=== PATIENT | female | born 1995 | race Caucasian/White ===

== ENCOUNTER 2020-01-14 01:24 | Emergency (ER) | payer OTHER ==
[~2020-01-14] VITALS: Ht 165.1 cm; Wt 49.9 kg
[2020-01-14] MEDS ORDERED: MACROBID 100 M100 MG PO (03:17)
== END 2020-01-14 03:25 | disposition home or self-care (01) ==
LOC: ED 01:24
DX: N39.0 Urinary tract infection, site not specified (principal); J45.909 Unspecified asthma, uncomplicated; F17.200 Nicotine dependence, unspecified, uncomplicated; Z91.018 Allergy to other foods
CPT/HCPCS: 74177; 80053; 81001; 83690; 84703; 85025; 87077; 87088; 87186; 99284-25; J1885; J7030; Q9967

== ENCOUNTER 2020-01-16 22:27 | Observation (INO) | payer OTHER ==
[~2020-01-16] VITALS: Ht 165.1 cm; Wt 62.4 kg
[~2020-01-16 22:27] MED LIST: MACROBID 100 M100 MG PO
--- OUTSIDE RECORDS SUMMARY | 2020-01-16 22:30 | XMS ---
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 Gaston has no Care Guidelines for this patient. [facility] (12 MO.) [facility] T[facility] NOTE: Visits indicate total known visits. ED/C VISIT TRACKING (12 MO.) 01/16/2020 22:27 [facility] [place] TYPE: Emergency COMPLAINT: - ABD PAIN 01/14/2020 01:25 [facility] [place] TYPE: Emergency COMPLAINT: - ABD PAIN INPATIENT VISIT TRACKING (12 MO.) No inpatient visits to display in this time frame [email or web address]
--- NOTE | 2020-01-17 01:05 | NUR ---
PT ARRIVED TO THE FLOOR VIA STRETCHER. SHE WAS PULLED OVER TO BED 3PA. SHE IS TUCKED INTO BED VS TAKEN. ARTURO IS IN THE ROOM DOING THE ADMISSION HX.
--- NOTE | 2020-01-17 01:25 | NUR ---
PT HAVING EMESIS AND RATING PAIN 8/10. CALLED DR FALK GOT NEW ORDERS TORBC FOR DILAUDID/PHENERGAN. NO FURTHER CHANGES.
--- NOTE | 2020-01-17 02:05 | NUR ---
ADMINISTERED PT 1MG IV DILAUDID FOR 8/10 PAIN. PT DENIES FURTHER NEEDS. CALL LIGHT IS CLOSE.
--- NOTE | 2020-01-17 02:26 | NUR ---
PT IS RESTING WITH EYES CLOSED, RR IS EVEN AND NONLABORED ON RA AT 98% SPO2. IV IS INFUSING FINE. CALL LIGHT IS CLOSE.
--- NOTE | 2020-01-17 05:09 | NUR ---
PT IS RESTING WITH EYES CLOSED, RR IS EVEN AND NONLABORED. IV IS INFUSING FINE. CALL LIGHT IS CLOSE.
--- NOTE | 2020-01-17 05:16 | NUR ---
pt USED CALL LIGHT TO ASK FOR ASSISTANCE INTO RESTROOM. VS AND I&OS COMPLETE. NOTHING FURTHER NEEDED AT THIS TIME.
--- NOTE | 2020-01-17 05:18 | NUR ---
PT WAS ADMITTED 010 TODAY WITH HOLDING ORDERS FROM E.R. PT WAS IN ALOT OF PAIN, CALLED DR FALK FOR MORE PAIN CONTROL AND NAUSEA MEDS. PT SINCE HAD A DOSE OF DILADID AND HAS SLEPT WELL SINCE THEN. SHE WILL BE EVALUATED BY DR FALK TODAY FOR SURGERY. SHE IS NPO AND HAS LR RUNNING AT 125MLS/HR.
--- NOTE | 2020-01-17 05:33 | NUR ---
IN ROOM TO ADMINISTER DILAUDID FOR PAIN 02/25. REVIEWED PREOP CHECKLIST WITH PT. WILL TRY TO START A 2ND IV, PT STATES THEY USUALLY HAVE A HARD TIME STARTING IV'S ON HER.
--- NOTE | 2020-01-17 06:04 | NUR ---
PT HAS IV FIELD START. THIS RN MADE 2 UNSUCESSFUL IV ATTEMPTS. PT DENIES NEEDS AT THIS TIME. CALL LIGHT IS CLOSE.
--- NOTE | 2020-01-17 07:26 | NUR ---
IN ROOM FOR REPORT, PT IN 02/25 PAIN. ADMINISTERING 1.5MG IV DILAUDID. PT DENIES FURTHER NEEDS. CALL LIGHT IS CLOSE.
--- NOTE | 2020-01-17 07:41 | NUR ---
RECEIVED REPORT FROM PAXTON LOERA. PT HAD NOTIFIED RYAN ORDAZ THAT SHE WAS IN PAIN. MADELINE RN AND NOREEN LOERA IN ROOM TO GIVE PT 1.5MG OF DILAUDID. TA ORDAZ IN ROOM TO ASSIST PT TO HAVE WIPE DOWN. ROD IN ROOM TO ASSIST PT TO SIGN UP FOR INSURANCE
--- NOTE | 2020-01-17 08:35 | NUR ---
PT OFF TO SURGERY AT THIS TIME
--- NOTE | 2020-01-17 10:46 | CONS ---
[facility] [address], [place] [address] Signed DATE OF CONSULTATION: 01/17/2020 REFERRING PHYSICIAN: Dr. Harvey Schneider. CHIEF COMPLAINT: Right lower quadrant abdominal pain. HISTORY OF PRESENT ILLNESS: Liberty is a 24-year-old female, otherwise healthy, who tells me she outgrew her childhood asthma. She came to our emergency room a couple of days ago with abdominal pain. This workup was negative including a CT scan. There was concern for urinary tract infection. Macrobid was sent into local [facility]. She and her boyfriend never picked up the prescription. She is currently unemployed I believe and she told me her boyfriend is also unemployed. She told me she is originally from [place], [place] but had lived in [place], [place] for a while with her grandfather, Sreedhar Gould. She told me she does drive. She also has two older siblings. Her abdominal pain has gotten worse and it is now localized to the right lower quadrant. She came back to the emergency room for evaluation. White count was elevated and her urine specific gravity was elevated with bacteria and nitrates in the urine. Beta-hCG was negative. Urine culture still pending. A repeat CT scan showed an inflamed appendix. Consequently, she was admitted overnight and started on Rocephin and Flagyl on IV fluids. This morning, she was sleeping, but easily awaken. PAST MEDICAL HISTORY: Ovarian cyst and asthma as a child. PAST SURGICAL HISTORY: None. SOCIAL HISTORY: She smokes a pack of cigarettes a day. She does not drink. Apparently lives with her boyfriend. She drives, but is unemployed and her boyfriend is unemployed. Her grandfather is Sreedhar Gould at [phone] in [place], [place]. She told me she is estranged from her family including her mom and dad. She prefers the [facility] pharmacy and has two older siblings, one brother, one sister. FAMILY HISTORY: She told me no knowledge of any significant medical history in the family. REVIEW OF SYSTEMS: She had 10 systems reviewed and there has been no other issues including the fractures and/or metal in her body. Electronically Signed By: JELLY FALK MD 01/17/20 1046 PATIENT NAME: LIBERTY RAMIREZ CONSULTATION DATE OF : [birth year] REPORT #: [id number] PHYSICIAN: JELLY FALK MD PCP: OTHER PCP REPORT IS CONFIDENTIAL AND NOT TO BE RELEASED WITHOUT AUTHORIZATION [facility] [address] [place] [address] Signed ALLERGIES: Almonds. MEDICATIONS: Macrobid 100 mg p.o. b.i.d. was ordered, but she is yet to pick that up from [facility] pharmacy. PHYSICAL EXAMINATION: VITAL SIGNS: Her blood pressure is 121/71, heart rate 57, respiratory rate 18, temperature is 98.7. She is 100% on room air. She is 5 feet 5 inches and 62 kg. GENERAL: Liberty is a 24-year-old female, who was sleeping in the left lateral decubitus position. She was easily awakened. LUNGS: Clear to auscultation bilaterally. HEART: Regular rate and rhythm. ABDOMEN: Generally soft and flat, but she is tender in the right lower quadrant. LABORATORY DATA: Her white blood count 16.3, hemoglobin 13, neutrophils 83, BUN 8, creatinine 0.46. Urine specific gravity was elevated at 1.040 with lots of bacteria and nitrites. Urine culture is pending and we will check the urine culture from the ER two days ago. Liver function tests are negative. Beta-hCG is negative. Albumin is 4.1. Coronavirus is pending. RADIOGRAPHIC STUDIES: A CT scan of abdomen and pelvis is reviewed and she has an inflamed appendix in the right lower quadrant, although not particularly dilated at 5-6 mm. ASSESSMENT AND PLAN: Liberty is a 24-year-old female, who has been admitted with what appears to be appendicitis as well as a urinary tract infection and dehydration. She has been given IV fluids, antibiotics, and pain control overnight. We have a short surgery ahead over and she will be next in line to get her appendix removed. We discussed the location and function of the appendix. We discussed laparoscopic versus open appendectomy. We reviewed the expected intraop and postop course. We did review the risks including, but not limited to bleeding, infection, scarring, change in contour of the skin, damage to bowel, appendiceal stump leak, intraabdominal postoperative abscess, incisional hernias and other unforeseen comorbidities. She has expressed understanding, would like to proceed. Jelly Falk MD Electronically Signed By: JELLY FALK MD 01/17/20 1046 PATIENT NAME: LIBERTY RAMIREZ CONSULTATION DATE OF : [birth year] REPORT #: [id number] PHYSICIAN: JELLY FALK MD PCP: OTHER PCP REPORT IS CONFIDENTIAL AND NOT TO BE RELEASED WITHOUT AUTHORIZATION [facility] [address] [facility] [place], [place] [address] Signed ALB/MODL /[id number] cc: Jelly Falk MD Copies: JELLY FALK MD ~ Electronically Signed By: JELLY FALK MD 01/17/20 1046 PATIENT NAME: LIBERTY RAMIREZ CONSULTATION DATE OF : [birth year] REPORT #: [id number] PHYSICIAN: JELLY FALK MD PCP: OTHER PCP REPORT IS CONFIDENTIAL AND NOT TO BE RELEASED WITHOUT AUTHORIZATION
--- NOTE | 2020-01-17 10:58 | NUR ---
01/17/20 1058 Edwige Richards 1038 PT ARRIVED IN PACU SLEEPY WITH NO C/O'S. ICE TO ABD. 1045 PT REPOSITIONED SELF TO L SIDE. SHIVERING. WARM BLANKETS PLACED ON PT.
--- NOTE | 2020-01-17 11:46 | NUR ---
pt arrived to the floor at 1130. pt has 3 lap sites that are clean dry and intact. pt does not complain of pain and is slightly drowsy but arousable. call light is within reach and pt was placed on cpox, pt o2 sat at 95% on room air
--- NOTE | 2020-01-17 12:27 | NUR ---
PT TAKEN TO SURGERY, WILL FOLLOW
--- NOTE | 2020-01-17 12:33 | NUR ---
1200 PT PUT STAFF AIR DEFENSE OFFICER LIGHT TO LET STAFF KNOW THAT SHE WAS IN A LOT OF PAIN. THIS RN ASSISTED PT TO COMMODE. PT ABLE TO URINATE AND GET BACK TO BED WITH MERLYN GRIMACING FROM PAIN. THIS RN DISCUSSED WITH PT WHAT MEDS SHE HAS AVAILABLE. THIS RN WENT TO GRAB PT PAIN MEDS. PT BACK TO SLEEP WITH RESPIRATIONS NOTED. THIS RN ABLE TO TAKE PTS BP AND START FLUIDS ON PT WITHOUT WAKING PT. THIS RN WILL RETURN TO ROOM TO GIVE MEDS WHEN PT WAKES UP AGAIN AND REQUESTS PAIN MEDS AGAIN I
--- NOTE | 2020-01-17 12:35 | NUR ---
PTS INCISIONS STILL CLEAN DRY AND INTACT WITH MOVEMENT TO COMMODE.
--- NOTE | 2020-01-17 13:01 | OR ---
[facility] [address] [place], [place] [address] Signed DATE OF OPERATION: 01/17/2020 SURGEON: Jelly Hendrickson MD PREOPERATIVE DIAGNOSIS: Acute appendicitis. POSTOPERATIVE DIAGNOSIS: Acute inflamed appendicitis. PROCEDURE: Laparoscopic appendectomy. ESTIMATED BLOOD LOSS: None. INDICATIONS: Liberty is a 24-year-old young lady, who is otherwise generally healthy. She had developed right lower quadrant abdominal pain and nausea. She had been in the emergency room a couple of days ago and initially, her evaluation including a CT scan was negative, but that pain became more localized to the right lower quadrant. She also had a urinary tract infection. Unfortunately, she did not stop by the pharmacy to pickers material handlers her Macrobid. She returns now with more localized right lower quadrant abdominal pain. Repeat CT scan showed an inflamed appendix. Of course, the urinalysis still contains bacteria and nitrites. The original culture from two days ago grew out E. coli. It is sensitive to the Macrobid. It is also sensitive to the Rocephin that we gave her in the emergency room. In addition, she did receive some Flagyl. I have been asked to admit her as a general surgeon on-call. She was hydrated overnight and this morning I had reviewed her findings with her in detail. We discussed the location of function of the appendix. We discussed laparoscopic versus an open appendectomy. She understands expected intraop and postop course. There is risk including, but not limited to bleeding, infection, scarring, change in contour of the skin, damage to bowel, appendiceal stump leak, postoperative intraabdominal abscess, incisional hernias and other unforeseen comorbidities. She had expressed understanding and wished to proceed. DESCRIPTION OF PROCEDURE: Liberty was taken in the operating room and placed in the supine position under general endotracheal tube anesthesia. She was given preoperative antibiotics along with subcutaneous heparin. SCDs were utilized. She had urinated just prior to going to the operating room. Consequently, we did not place a Torres catheter. She was prepped and Electronically Signed By: JELLY HENRDICKSON MD 01/17/20 1301 PATIENT NAME: LIBERTY RAMIREZ OPERATIVE REPORT DATE OF : [birth year] REPORT #: [id number] PHYSICIAN: JELLY HENDRICKSON MD PCP: OTHER PCP REPORT IS CONFIDENTIAL AND NOT TO BE RELEASED WITHOUT AUTHORIZATION [address] [address] Signed draped in the usual sterile fashion. All trocars were placed in usual positions under direct visualization of camera without difficulty. Pictures were taken throughout for photodocumentation. The appendix was elevated and divided from the base of the cecum with the help of the linear stapler. The vascular load was then used to divide the mesoappendix. Hemostasis was excellent on both staple lines. The appendix was then placed into an EndoCatch bag and taken out through the right subcostal trocar site. We used our laparoscopic suturing device to pass 0 Vicryl suture on either side of the fascia of the subxiphoid trocar site. This was closed fascia primarily. After this, all the gas was allowed to escape and all the remaining trocars were removed. We closed the fascia of the supraumbilical trocar site with interrupted [id number]-toirs and simple 0 Vicryl sutures. Local anesthetic was copiously injected into all 3 trocar sites. Each trocar site was irrigated and suctioned out until clear. The skin and dermis of each trocar site were closed with interrupted 2-0 subcuticular Monocryl sutures. Dry gauze and tape were then applied to all incisions. Liberty was awakened from her anesthesia, extubated in the OR, and taken to the recovery room in stable condition. Jelly Hendrickson MD ALB/MODL /[id number] cc: Jelly Hendrickson MD Copies: JELLY HENDRICKSON MD ~ Electronically Signed By: JELLY HENDRICKSON MD 01/17/20 1301 PATIENT NAME: LIBERTY RAMIREZ OPERATIVE REPORT DATE OF : [birth year] REPORT #: [id number] PHYSICIAN: JELLY HENDRICKSON MD PCP: OTHER PCP REPORT IS CONFIDENTIAL AND NOT TO BE RELEASED WITHOUT AUTHORIZATION
--- NOTE | 2020-01-17 13:49 | NUR ---
PATIENT CURLED UP ON LEFT SIDE IN BED. VITALS CHARTED BY EVARISTO PERERA. I&OS DONE. GARBAGE EMPTIED. CALL LIGHT IN REACH
--- NOTE | 2020-01-17 14:30 | NUR ---
PT REQUESTING MORE PAIN MEDS AT THIS TIME. PAIN MEDS NOT AVAILABLE AT THIS TIME. CALL LIGHT IS WITHIN REACH. PT AGREEABLE TO WAIT A BIT MORE TIME FOR PAIN MEDS. PTS BOYFRIEND IN ROOM AT THIS TIME
--- NOTE | 2020-01-17 14:46 | NUR ---
PTS 3 LAP SITES ARE CLEAN DRY AND INTACT AT THIS TIME
--- NOTE | 2020-01-17 16:14 | NUR ---
PT APPEARS TO BE RESTING AT THIS TIME COMFORTABLY. RESPIRATIONS NOTED AND PT IS ON CPOX AT THIS TIME
--- NOTE | 2020-01-17 19:15 | NUR ---
SHIFT REPORT RECEIVED FROM DILMA LOERA. PT RESTING IN BED, EYES CLOSED. CALL LIGHT IN REACH. IV FLUIDS INFUSING PER ORDER.
--- NOTE | 2020-01-17 20:15 | NUR ---
ASSESSMENT, VS AND I&O COMPLETED. PT PAIN 10/10 PRN PAIN MED PROVIDED. 3 LAP SITES CDI, WNL, COVERED WITH GAUZE. BOWEL TONES ACTIVE. PT TOLERATING LIQUIDS. LUNGS CLEAR. IV WNL, CDI, FLUSHED MWELL. IV FLUIDS INFUSING PER ORDER. CMS INTACT. CPOX 96% RA, PULSE 51. NO OTHER NEEDS AT THIS TIME. CALL LIGHT IN RE REACH.
--- NOTE | 2020-01-17 20:28 | NUR ---
PT IV IS A FIELD START THAT IS BUT FLUSHED WELL, CDI AND WNL. CALLED MD ON PHONE TO INFORM HIM SHE HAS HAD 6 IV ATTEMPTS IN THE LAST DAY TO TRY TO REPLACE THE IV WITHOUT SUCCESS AND ASK IF IT IS OK TO LEAVE AND USE THE IV IN PLACE. MD AUTHORIZED LEAVING THE FIELD START AND USE THE IV NEEDED. ORDER REPEATED BACK.
--- NOTE | 2020-01-17 21:15 | NUR ---
PT CALLED, STATED SHE SPILT HER ICE PACK ON THE FLOOR. CLEANED UP, NO OTHER NEEDS AT THIS TIME.
--- NOTE | 2020-01-17 22:22 | NUR ---
HELPED PT TO THE BATHROOM AND BACK TO BED. SCD'S PUT ON AND TURNED ON. PT ASKED FOR SOMETHING TO EAT. I GAVE HER SOME PUDDING. SHE ALSO ASKED FOR PAIN MEDS. I INFORMED HER RN MARITZA. PT NEEDS NOTHING MORE AT THIS TIME.
--- NOTE | 2020-01-17 22:25 | NUR ---
PT STATES PAIN IS 9/10 IN ABD. PRN PAIN MED PROVIDED. NO OTHER NEEDS AT THIS TIME. CPOX 97% RA, PULSE 53. IV FLUIDS INFSUING PER ORDER. CALL LIGHT IN REACH.
--- NOTE | 2020-01-18 00:38 | NUR ---
PT STATES HER PAIN IS 9/10 AND HAS NAUSEA. PRN PAIN AND NAUSEA MEDS PROVIDED. PT ASKS ABOUT GOING OUTSIDE TO SMOKE. INFORMED HER AND BOYFRIEND THAT IS IN ROOM THAT WE ARE A TOBACCO FREE CAMPUS. SHE SAYS "OK". NO OTHER NEEDS AT THIS TIME. CALL LIGHT IN REACH.
--- NOTE | 2020-01-18 02:10 | NUR ---
PT AWAKE IN ROOM. PT EDUCATED ON THE NEED TO REST AND TO HAVE VISITORS LET HER REST. VS AND I&O COMPLETED. IV INFUSING PER ORDER. NO OTHER NEEDS AT THIS TIME. PAIN 10/26, ICE PACK PROVIDED. CALL LIGHT IN REACH.
--- NOTE | 2020-01-18 02:54 | NUR ---
PT AWAKE IN ROOM, WATCHING TV. PAIN 08/28. BROTH PROVIDED. NO OTHER NEEDS AT THIS TIME. CALL LIGHT IN REACH.
--- NOTE | 2020-01-18 03:12 | NUR ---
PT RESTING IN BED, WATCHING TV. PAIN 2/10, NO NEED FOR INTERVENTION. ASSESSMNET COMPLETED. INCISIONS CDI, WNL. IV WNL, CDI. BOWEL TONES ACTIVE. LUNGS CLEAR. NO OTHER NEEDS. CALL LIGHT IN REACH.
--- NOTE | 2020-01-18 05:05 | NUR ---
PT STATES SHE HAS 6/10 PAIN, PRN PAIN MED PROVIDED. IV WNL, FLUSHED WELL. IV FLUIDS INFUSING PER ORDER. PT EATING JELLO, TOLERATING WELL. NO OTHER NEEDS. CALL LIGHT IN REACH.
--- NOTE | 2020-01-18 05:58 | NUR ---
PT SLEPT VERY LITTLE THIS SHIFT. PAIN MANAGED WITH PRN PAIN MEDS. INCISIONS WNL, CDI, COVERED. ABD MILDLY DISTENDED, BOWEL TONES ACTIVE. UOS, VSS. IV WNL. LUNG SOUNDS CLEAR. PT TOLERATED DIET WELL. PT HAD MILD NAUSEA MANAGED BY PRN MED.
--- NOTE | 2020-01-18 06:35 | NUR ---
PATIENT RESTING IN BED, CALL LIGHT IN REACH. FAMILY SLEEPING IN BEDSIDE RECILNER. PATIENT AWAKES BRIEFLY FOR VITAL SIGNS BUT OTHERWISE REMAINS ASLEEP. IMAGING MANAGER FOUND IN PATIENT'S LINEN, PATIENT APPEARS TO HAVE DARKENED LEFT EYE. RN NOTIFIED. NO FURTHER NEEDS AT THIS TIME.
--- NOTE | 2020-01-18 07:08 | NUR ---
Received report from Lisa Joaquin RN. Patient lying in bed with eyes closed. Family member at bedside. No signs of pain or discomfort noted at this time. call light in reach, bed rails up X2.
--- NOTE | 2020-01-18 08:20 | NUR ---
ASSESSMENT COMPLETED. AM MEDICATIONS GIVEN. TAKES WITHOUT DIFFICULTY. DRESSINGS FROM INCISION SITES REMOVED PER VERBAL ORDER FROM DR. FALK. IV FLUIDS DECREASED PER ORDER. PRN ANALGESIC GIVEN PER PATIENT REQUEST. ENCOURAGED TO ORDER BREAKFAST, MENU AND INSTRUCTIONS GIVEN FOR ORDERING MEALS. VERBALIZES UNDERSTANDING. INFORMED SHE SHOULD SHOWER AND AMBULATE IN [place] THIS MORNING. DENIES OTHER NEEDS. CALL LIGHT IN REACH, FAMILY MEMBER IN ROOM.
--- NOTE | 2020-01-18 08:49 | NUR ---
PATIENT IS STILL IN BED. SHE SAID SHE WOULD TAKE A SHOWER AND AMBULATE IN THE [place] AFTER SHE EATS HER BREAKFAST. ALSO GOT HER SHOWER IS SET UP.
--- NOTE | 2020-01-18 10:00 | NUR ---
SPOKE WITH PATIENT IN ROOM. HER GRANDFATHER IS IN THE ROOM. ASKED IF I CAN TALK WITH HER IN FRONT OF HIM, EVEN ABOUT DELICATE ISSUES. SHE STATES "YES, HE KNOWS ALL ABOUT MY ISSUES". PATIENT LIVES INBETWEEN HOMES OF FAMILY. HAS A BOYFRIEND. SHE IS NOT WORKING. SHE CAN DRIVE, BUT DOESN'T HAVE A CAR. USES NO DME. HAS NO AMBULATION ISSUES. DISCUSSED HER SCREEN THAT SHE HAS BEEN USING MULTIPLE ILLEGAL STREET SUBSTANCES. OFFERED PEER TO PEER SCREEN FROM [facility]. PATIENT STATES SHE IS INTERESTED IN THIS. STATES SHE WANTS TO GET "CLEAN". ASKED IF IT WAS OK FOR ME TO CALL THEM AND SET UP FOR SOMEONE TO COME SEE HER. EXPLAINED SHE IS UNDER NO OBLIGATION, IT IS STRICTLY TO GIVE HER RESOURCES AND IF SHE WANTS TO WORK WITH THEM SHE CAN MAKE A PLAN WITH THEM FOR AFTER DISCHARGE. SHE IS AGREEABLE TO THIS.
--- NOTE | 2020-01-18 10:45 | NUR ---
CALLED [facility] A[facility] [phone]. SPOKE WITH ALEXANDRE. DISCUSSED THE SITUATION. SHE STATES SHE WILL COME SEE PATIENT WITHIN THE NEXT COUPLE HOURS. EXPLAINED PATIENT MAY BE DISCHARGING LATER TODAY.
--- NOTE | 2020-01-18 12:05 | NUR ---
PEER TO PEER COUNSELOR IN THE ROOM.
--- NOTE | 2020-01-18 12:31 | NUR ---
PEER MENTOR IN SPEAKING WITH PATIENT AT THIS TIME.
--- NOTE | 2020-01-18 13:31 | NUR ---
UP AMBULATING IN HALLWAY WITH FAMILY MEMBER. INFORMED OF NEED TO AMBULATE AND SHOWER. IV CONVERTED TO SALINE LOCK FOR PATIENT TO AMBULATE. TOLERATING FOOD AND LIQUIDS WELL. PAIN CONTROLLED WITH PO MEDICATION THIS AM. INFORMED IF SHE CONTINUES TO DO WELL THIS AFTERNOON, WE WILL DISCUSS HER GOING HOME. VERBALIZES UNDERSTANDING.
--- NOTE | 2020-01-18 13:52 | NUR ---
INFORMED DR. FALK OF PATIENT ABILITY TO EAT, DRINK, AMBULATE AND PAIN CONTROLLED WITH PO ANALGESICS. ORDERS TO DC PATIENT TO HOME.
[2020-01-18] MEDS ORDERED: NORCO 5-325 TA1 EACH PO (14:14)
[2020-01-18] MEDS ORDERED: MACROBID 100 M100 MG PO (14:14)
--- NOTE | 2020-01-18 16:24 | PATH ---
[facility] [address] [facility], [place] [address] Signed SPECIMEN(S): A APPENDIX SPECIMEN SOURCE: A. APPENDIX CLINICAL HISTORY: Acute appendicitis. FINAL PATHOLOGIC DIAGNOSIS: Appendix, appendectomy: - Acute appendicitis, periappendicitis and serositis. - Focal mucosal erosion. - Negative for atypical features. JVR:cml:C2NR MICROSCOPIC EXAMINATION: Histologic sections of all submitted blocks are examined by light microscopy. These findings, together with the gross examination, support the pathologic diagnosis. GROSS DESCRIPTION: The specimen, labeled "SD," and designated on the requisition "appendix," is received in formalin and consists of Specimen: Appendix with mesoappendix. Dimensions: 5.6 x 0.8 cm. Serosa: Cobb and rough. Perforation: Not grossly identified. Inking: Staple line is inked black. Mucosa: Thickened, cobb with hemorrhagic lumen. Fecalith: Not grossly identified. Additional: None. [employer] Distributor sections are submitted in cassette (A1). AT (under the direct supervision of a pathologist) The Gross Description was prepared using a voice recognition system. The report was reviewed for accuracy; however, sound-alike word errors, addition and/or deletions may occur. If there is any question about this report, please contact Client Services. PERFORMING LABORATORY: The technical component was performed by [facility], [address] [place] [id number] (Assembler Surgical Garment: Mamta Miguel MD; CLIA# [id number]). PATIENT NAME: JAMESEILEEN Mcwilliams PATHOLOGY DATE OF : [birth year] REPORT #: [id number] PHYSICIAN: RD PATHOLOGY PCP: OTHER PCP REPORT IS CONFIDENTIAL AND NOT TO BE RELEASED WITHOUT AUTHORIZATION [place] [id number] [facility] [place], [place] [address] Signed Professional interpretation was performed by [facility], [place] [address] (As[employer]er Surgical Garment: Nasir Ryder M.D.). Diagnostician: Nasir Ryder MD Pathologist Electronically Signed 01/18/2020 Copies: ~ PATIENT NAME: EILEEN RAMIREZ Oj PATHOLOGY DATE OF : [birth year] REPORT #: [id number] PHYSICIAN: RD PATHOLOGY PCP: OTHER PCP REPORT IS CONFIDENTIAL AND NOT TO BE RELEASED WITHOUT AUTHORIZATION
== END 2020-01-18 15:15 | disposition home or self-care (01) ==
LOC: ED 22:27 → MS 22:28
PROVIDERS: ADMIT Colon & Rectal Surgery
PROC: 0DTJ4ZZ Resection of Appendix, Percutaneous Endoscopic Approach (ICD-10-PCS; principal; 2020-01-17 09:15)
DX: K35.33 Acute appendicitis with perforation, localized peritonitis, and gangrene, with abscess (principal); F17.210 Nicotine dependence, cigarettes, uncomplicated; Z91.018 Allergy to other foods
CPT/HCPCS: 00840; 74177; 80053; 81001; 84703; 85025; 87077; 87088; 87186; 88304; 96361; 96368; 96375; 96376; 99285-25; C9803; G0378; J0330; J0696; J1100; J1170; J1650; J1885; J2001; J2270; J2405; J2704; J3010; J7030; J7121; Q9967; U0002

== ENCOUNTER 2020-10-01 02:37 | Emergency (ER) | payer OTHER ==
[~2020-10-01] VITALS: Ht 165.1 cm; Wt 62.4 kg
[~2020-10-01 02:37] MED LIST changes: +NORCO 5-325 TA1 EACH PO
[2020-10-01] MEDS ORDERED: CLINDAMYCIN HC300 MG PO (02:57)
== END 2020-10-01 03:07 | disposition home or self-care (01) ==
LOC: ED 02:37
DX: K04.7 Periapical abscess without sinus (principal); J45.909 Unspecified asthma, uncomplicated; F17.200 Nicotine dependence, unspecified, uncomplicated; Z91.018 Allergy to other foods
CPT/HCPCS: 99282

== ENCOUNTER 2022-03-05 15:04 | Emergency (ER) | payer OTHER ==
[~2022-03-05] VITALS: Ht 165.1 cm; Wt 56.7 kg
[~2022-03-05 15:04] MED LIST changes: +CLINDAMYCIN HC300 MG PO
== END 2022-03-05 17:00 | disposition home or self-care (01) ==
LOC: ED 15:04
DX: S96.912A Strain of unspecified muscle and tendon at ankle and foot level, left foot, initial encounter (principal); J45.909 Unspecified asthma, uncomplicated; F17.200 Nicotine dependence, unspecified, uncomplicated; Z91.018 Allergy to other foods; W10.9XXA Fall (on) (from) unspecified stairs and steps, initial encounter
CPT/HCPCS: 73610; 73630; 99283-25; A9270

== ENCOUNTER 2022-07-04 07:06 | Emergency (ER) | payer OTHER ==
[~2022-07-04] VITALS: Ht 165.1 cm; Wt 56.7 kg
--- OUTSIDE RECORDS SUMMARY | 2022-07-04 07:08 | XMS ---
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 Gaston has no Care Guidelines for this patient. Willie VISIT COUNT (12 MO.) [address] [place] TOTAL 3 NOTE: Visits indicate total known visits. ED/C VISIT TRACKING (12 MO.) [facility] 07[facility] [place] [facility] COMPLAINT: - SUBSTANCE ABUSE 06/20/2022 20:00 [facility] OR TYPE: Emergency DIAGNOSES: - Cystitis, unspecified with hematuria - POSS UTI 03/05/2022 15:06 [facility] TYPE: Emergency COMPLAINT: - L FOOT PAIN DIAGNOSES: - Strain of unspecified muscle and tendon at ankle and foot level, left foot, initial encounter - Fall (on) (from) unspecified stairs and steps, initial encounter - Unspecified asthma, uncomplicated - Pain in left ankle and joints of left foot - Allergy to other foods - Nicotine dependence, unspecified, uncomplicated INPATIENT VISIT TRACKING (12 MO.) No inpatient visits to display in this time frame [email or web address]
[2022-07-04] MEDS ORDERED: ZOLOFT25 MG PO (07:13)
[2022-07-04] MEDS ORDERED: BUSPIRONE HCL5 MG PO (07:13)
--- NOTE | 2022-07-04 19:02 | EKG ---
[facility] [address] [facility] [place] [address] Signed Sinus bradycardia with sinus arrhythmia Rightward axis Borderline ECG No previous ECGs available Confirmed by JOSELIN VARGAS MD ([id number] on 07/04/2022 7:02:21 PM Electronically Signed By: JOSELIN VARGAS MD 07/04/221901 PATIENT NAME: EILEEN RAMIREZ Oj Electrocardiogram DATE OF : [birth year] PHYSICIAN: JOSELIN VARGAS MD REPORT #: [id number] REPORT IS CONFIDENTIAL AND NOT TO BE RELEASED WITHOUT AUTHORIZATION
== END 2022-07-04 08:11 | disposition left against medical advice (07) ==
LOC: ED 07:06
DX: R55 Syncope and collapse (principal); F11.23 Opioid dependence with withdrawal; J45.909 Unspecified asthma, uncomplicated; F17.200 Nicotine dependence, unspecified, uncomplicated; Z53.29 Procedure and treatment not carried out because of patient's decision for other reasons; Z91.018 Allergy to other foods; Z79.899 Other long term (current) drug therapy
CPT/HCPCS: 36415; 80053; 85025; 87502; 99284-25; J7030; U0003